=== PATIENT | female | born 1970 | race African-American/Black ===

== ENCOUNTER 2019-05-25 08:55 | Day surgery (SDC) | payer OTHER ==
[~2019-05-25] VITALS: Ht 162.6 cm; Wt 117.9 kg
[2019-05-25] MEDS ORDERED: CEFAZOLIN SOD 1 GM/ ISO 50 ML PREMIX IV ONE (09:00)
[2019-05-25] MEDS ORDERED: CEFAZOLIN SOD 2 GM in D5W 50 ML IV ONE (09:00)
[2019-05-25] MEDS ORDERED: ONDANSETRON HCL 4 MG/2 ML VIAL IVP PRN (11:15)
[2019-05-25] MEDS ORDERED: fentaNYL CITRATE/PF 100 MCG/2 ML AMP IVP PRN ×2 (11:15)
[2019-05-25] MEDS ORDERED: KETOROLAC TROMETHAMINE 30 MG VIAL IVP PRN (11:15)
[2019-05-25] MEDS ORDERED: KETOROLAC TROMETHAMINE 30 MG VIAL IVP ONE (11:48)
[2019-05-25] MEDS ORDERED: fentaNYL CITRATE/PF 100 MCG/2 ML AMP IVP ONE (11:48)
[2019-05-25] MEDS ORDERED: BUPIVACAINE /EPINEPHRINE/PF 0.5% 30 ML VIAL INJ ONE (11:48)
[2019-05-25] MEDS ORDERED: CEFAZOLIN 2 GM IVPB PREMIX 50 ML IV ONE (11:48)
[2019-05-25] MEDS ORDERED: SEVOFLURANE 15 MIN GAS INH ONE (11:48)
[2019-05-25] MEDS ORDERED: ROCURONIUM BROMIDE 10 MG/ML (ZEMURON) IV ONE (11:48)
[2019-05-25] MEDS ORDERED: WATER FOR IRRIGATION,STERILE 1,000 ML IRRIG.SOLN IR ONE (11:48)
[2019-05-25] MEDS ORDERED: MIDAZOLAM HCL 5 MG/5 ML VIAL IVP ONE (11:48)
[2019-05-25] MEDS ORDERED: ONDANSETRON HCL 4 MG/2 ML VIAL IVP ONE (11:48)
[2019-05-25] MEDS ORDERED: LR 1,000 ML IV.SOLN IV ONE (11:48)
[2019-05-25] MEDS ORDERED: LIDOCAINE 2%, 20 ML MDV INJ ONE (11:48)
[2019-05-25] MEDS ORDERED: OXYCODONE/ACETAMINOPHEN 5-325 TABLET PO PRN (17:15)
[2019-05-25] MEDS ORDERED: hydrALAZINE HCL 20 MG/ML VIAL IVP ONE (17:49)
[2019-05-25] MEDS ORDERED: hydrALAZINE HCL 20 MG/ML VIAL ONE (17:56)
[2019-05-25] MEDS ORDERED: ONDANSETRON HCL 4 MG/2 ML VIAL ONE ×2 (18:12→18:31)
[2019-05-25] MEDS ORDERED: fentaNYL CITRATE/PF 100 MCG/2 ML AMP ONE (18:37)
[2019-05-25] MEDS: HYDROmorphone 2 MG/ML VIAL IVP PRN (19:56)
[2019-05-25] MEDS ORDERED: TEMAZEPAM 15 MG CAPSULE ONE (19:58)
[2019-05-25 21:00] VITALS: BP_SYST 115
[2019-05-25] MEDS ORDERED: SIMETHICONE 80 MG TAB.CHEW PO SCH (21:00)
[2019-05-25] MEDS ORDERED: TEMAZEPAM 15 MG CAPSULE PO SCH (21:00)
[2019-05-25] MEDS: D5LR 1,000 ML IV SCH (21:57)
[2019-05-25] MEDS ORDERED: CEFAZOLIN 2 GM IVPB PREMIX 100 ML IV ONE (22:09)
[2019-05-25] MEDS: ceFAZolin SODIUM 2 GM in D5W 100 ML IV SCH (22:23)
[2019-05-26] MEDS: ONDANSETRON HCL 4 MG/2 ML VIAL IVP PRN ×2 (00:13→08:51)
[2019-05-26] MEDS: HYDROmorphone 2 MG/ML VIAL IVP PRN ×3 (00:20→09:50)
[2019-05-26 00:23] VITALS: BP_SYST 119
[2019-05-26] MEDS ORDERED: SIMETHICONE 80 MG TAB.CHEW PO SCH ×2 (02:00)
[2019-05-26] MEDS: SIMETHICONE 80 MG TAB.CHEW PO SCH ×3 (03:17→12:00)
[2019-05-26] MEDS: D5LR 1,000 ML IV SCH (03:21)
[2019-05-26 03:52] VITALS: BP_SYST 119
[2019-05-26 04:00] VITALS: BP_SYST 125
[2019-05-26 04:42] LABS: BASOPHILS % (AUTO) 0.1 % (0.0-2.0); HEMATOCRIT 27.4 % (36-48); HEMOGLOBIN 8.7 g/dL (12.0-16.0); LYMPHOCYTES # (AUTO) 0.9 K/uL (1.0-5.5); LYMPHOCYTES % (AUTO) 8.1 % (20.5-51.5); MEAN CORPUSCULAR HEMOGLOBIN 25 pg (27-31); MEAN CORPUSCULAR HGB CONC 32 % (32-36); MEAN CORPUSCULAR VOLUME 78 fL (79.0-98.0); MONOCYTES # (AUTO) 1.3 K/uL (0.0-1.0); MONOCYTES % (AUTO) 12.5 % (1.7-9.3); NEUTROPHILS # (AUTO) 8.4 K/uL (1.8-7.7); NEUTROPHILS % (AUTO) 79.3 % (40.0-70.0); PLATELET COUNT (AUTO) 247 K/uL (130-430); RED CELL DISTRIBUTION WIDTH 16.1 % (9.0-15.0); WHITE BLOOD COUNT (AUTO) 10.6 K/uL (4.8-10.8)
[2019-05-26] MEDS ORDERED: CETI10CA PO (04:53)
[2019-05-26] MEDS ORDERED: OMEP40CA33 PO (04:53)
[2019-05-26] MEDS ORDERED: PERC10 PO (04:53)
[2019-05-26] MEDS ORDERED: BACL20 PO (04:53)
[2019-05-26] MEDS ORDERED: CIME800T PO (04:53)
[2019-05-26] MEDS: ceFAZolin SODIUM 2 GM in D5W 100 ML IV SCH (05:15)
[2019-05-26 08:00] VITALS: BP_SYST 100
[2019-05-26 12:15] VITALS: BP_SYST 100
[2019-05-26 12:50] VITALS: BP_SYST 101
== END 2019-05-26 13:20 | disposition home or self-care (01) ==
LOC: SMU 08:55 → SDS 08:55 → SMU 18:30 → SDS 05-26 13:20
PROVIDERS: ATTEND Specialist
DX: D25.1 Intramural leiomyoma of uterus (principal); D25.2 Subserosal leiomyoma of uterus; N92.0 Excessive and frequent menstruation with regular cycle; E03.9 Hypothyroidism, unspecified; I10 Essential (primary) hypertension; E66.01 Morbid (severe) obesity due to excess calories; E11.9 Type 2 diabetes mellitus without complications; F32.9 Major depressive disorder, single episode, unspecified; F41.9 Anxiety disorder, unspecified; Z98.890 Other specified postprocedural states
CPT/HCPCS: 36415; 58546; 85025; 88305; 93005; C1727; J0360; J0690 ×3; J1170 ×2; J1885; J2001; J2250; J2405 ×2; J3010; J3490; J7060 ×2; J7120 ×3; E0190